=== PATIENT | male | born 1950 | race Caucasian/White ===

== ENCOUNTER 2018-10-24 03:56 | Inpatient (IN) ==
[2018-10-24] MEDS ORDERED: ONDANSETRON 4 MG/2 ML VIAL IV STA (04:23)
[2018-10-24] MEDS ORDERED: SODIUM CHLORIDE 0.9% 500 ML IV STA (04:23)
[2018-10-24] MEDS ORDERED: HYDROmorphone 2 MG/1 ML VIAL IV STA (04:23)
[2018-10-24 04:58] LABS: Basophils % 0.1 % (0.0-0.8); Eosinophils # 0.1 10*3/uL (0.0-0.87); Eosinophils % 1.3 % (0.00-10.9); Hematocrit 34.8 VOL% (42.0-52.0); Hemoglobin 11.2 GM/DL (14.0-18.0); Immature Granulocytes % 0.4 %; Immature Granulocytes Absolute 0.03 #; Lymphocytes # 0.6 10*3/uL (1.4-4.0); Lymphocytes % 7.5 % (21.2-54.2); Mean Corpuscular HGB Conc 32.2 GM/DL (32-36); Mean Corpuscular Volume 92.8 FL (87-102); Mean Platelet Volume 9.9 FL (9.6-12.0); Monocytes % 7.3 % (1.7-12.7); Neutrophils % 83.4 % (38.7-73.9); Platelet Count 196 T/CUMM (130-400); Red Blood Count 3.75 MC/CUMM (3.8-5.5); Red Cell Distribution Width 12.9 % (9.3-17.3); White Blood Count 7.6 T/CUMM (4-12)
[2018-10-24 05:03] LABS: INR 0.9; PT Patient Result 10.3 SECS
[2018-10-24 05:39] LABS: Albumin 3.6 G/DL (3.4-5.0); Bilirubin,Total 0.4 MG/DL (0.2-1.0); Osmolality,Calculated 289.1 MOS/KG (273-304); Total Protein 6.7 G/DL (6.4-8.3)
[2018-10-24] MEDS ORDERED: MAGNESIUM HYDROXIDE SUSP 30 ML UDCUP PO PRN (07:40)
[2018-10-24] MEDS ORDERED: ONDANSETRON 4 MG/2 ML VIAL IV PRN (07:40)
[2018-10-24] MEDS ORDERED: ceFAZolin 2,000 MG in PREMIX 1 EACH IV ONE (07:40)
[2018-10-24] MEDS ORDERED: HYDROmorphone 2 MG/1 ML VIAL IV PRN (07:40)
[2018-10-24 09:19] LABS: Risk Ratio 3.12; Thyroid Stimulating Hormone 1.41 uIU/ml (0.358-3.74); VLDL CHOLESTEROL 15.2 MG/DL
[2018-10-24] MEDS: SODIUM CHLORIDE 0.9% 1,000 ML IV SCH ×3 (10:23→23:42)
[2018-10-24] MEDS ORDERED: DIAZEPAM 5 MG TABLET PO ONE (12:00)
[2018-10-24] MEDS ORDERED: FAMOTIDINE 20 MG TABLET PO ONE (12:00)
[2018-10-24] MEDS ORDERED: EPINEPHrine 1 MG/ML VIAL ONE (13:55)
[2018-10-24] MEDS ORDERED: BUPIVACAINE SPINAL 0.75% 2 ML AMP SPINAL ONE (13:55)
[2018-10-24] MEDS ORDERED: BUPIVACAINE 0.5% 50 ML VIAL ONE (13:55)
[2018-10-24] MEDS ORDERED: DEXAMETHASONE 4 MG/1 ML VIAL ONE (13:55)
[2018-10-24] MEDS ORDERED: PHENYLEPHRINE 1 MG/10 ML SYRINGE IV ONE ×2 (13:56→16:00)
[2018-10-24] MEDS ORDERED: PROPOFOL 500 MG/50 ML BOTTLE IV ONE (13:56)
[2018-10-24] MEDS ORDERED: MORPHINE 4 MG/1 ML VIAL IV PRN (14:49)
[2018-10-24] MEDS ORDERED: diphenhydrAMINE CAP 25 MG CAPSULE PO PRN (14:49)
[2018-10-24] MEDS ORDERED: BACITRACIN OINT 0.9 GM PACK TOP ONE (15:36)
[2018-10-24] MEDS ORDERED: KETAMINE 500 MG/10 ML VIAL ONE (16:00)
[2018-10-24] MEDS ORDERED: MIDAZOLAM 2 MG/2 ML VIAL ONE (16:00)
[2018-10-24] MEDS ORDERED: LACTATED RINGERS 1,000 ML IV ONE (16:01)
[2018-10-24 16:58] LABS: Apearance,Urine CLOUDY (Clear); Bilirubin,Urine Negative (Negative); Blood, Urine Negative (Negative); Glucose,Urine (UA) Negative (Negative); Ketones,Urine Negative (Negative); Mucus,Urine Moderate /LPF (Occasional); Nitrite,Urine Negative (Negative); Protein,Urine Negative; Urine Color Yellow (Yellow); Urine Specific Gravity 1.029 (1.001-1.035); Urine Urobilinogen < 2.0 EU/DL (0.2-1.0)
[2018-10-24] MEDS: KETOROLAC 30 MG/1 ML VIAL IV SCH ×2 (17:29→22:03)
[2018-10-24] MEDS: ceFAZolin 2,000 MG in PREMIX 1 EACH IV SCH (18:12)
[2018-10-24] MEDS: DOCUSATE SODIUM 100 MG CAPSULE PO SCH (22:03)
[2018-10-25] MEDS: MORPHINE 4 MG/1 ML VIAL IV PRN ×2 (00:54→11:09)
[2018-10-25] MEDS: KETOROLAC 30 MG/1 ML VIAL IV SCH ×2 (03:09→09:12)
[2018-10-25] MEDS: ceFAZolin 2,000 MG in PREMIX 1 EACH IV SCH (03:09)
[2018-10-25] MEDS: SODIUM CHLORIDE 0.9% 1,000 ML IV SCH (04:25)
[2018-10-25 05:54] LABS: Calcium 8.5 MG/DL (8.5-10.1); Osmolality,Calculated 287.1 MOS/KG (273-304)
[2018-10-25 05:56] LABS: Calcium 8.4 MG/DL (8.5-10.1); Osmolality,Calculated 287.1 MOS/KG (273-304)
[2018-10-25 06:48] LABS: Hematocrit 25.2 VOL% (42.0-52.0); Immature Granulocytes % 0.5 %; Immature Granulocytes Absolute 0.03 #; Lymphocytes # 0.4 10*3/uL (1.4-4.0); Lymphocytes % 7.3 % (21.2-54.2); Mean Corpuscular HGB Conc 32.9 GM/DL (32-36); Mean Corpuscular Volume 93.7 FL (87-102); Mean Platelet Volume 10.5 FL (9.6-12.0); Monocytes % 8.1 % (1.7-12.7); Neutrophils % 84.1 % (38.7-73.9); Platelet Count 136 T/CUMM (130-400); Red Blood Count 2.69 MC/CUMM (3.8-5.5); Red Cell Distribution Width 12.6 % (9.3-17.3); White Blood Count 5.5 T/CUMM (4-12)
[2018-10-25 06:51] LABS: Hemoglobin 8.3 GM/DL (14.0-18.0)
[2018-10-25] MEDS: TOLTERODINE LA 2 MG CAPSULE PO SCH (09:14)
[2018-10-25] MEDS: hydroCHLOROthiazide 25 MG TABLET PO SCH (09:14)
[2018-10-25] MEDS: LEVOTHYROXINE 50 MCG TABLET PO SCH (09:14)
[2018-10-25] MEDS: LISINOPRIL 20 MG TABLET PO SCH (09:17)
[2018-10-25] MEDS: OMEGA 3 ACID ETHYL ESTERS 1 GM CAPSULE PO SCH (09:17)
[2018-10-25] MEDS: DOCUSATE SODIUM 100 MG CAPSULE PO SCH ×2 (09:17→21:58)
[2018-10-25] MEDS: ROSUVASTATIN 10 MG TABLET PO SCH (09:17)
[2018-10-25] MEDS: FONDAPARINUX 2.5 MG/0.5 ML SYRINGE SUBCUT SCH (09:20)
[2018-10-26 05:16] LABS: Basophils % 0.2 % (0.0-0.8); Eosinophils # 0.1 10*3/uL (0.0-0.87); Eosinophils % 2.5 % (0.00-10.9); Hematocrit 23.5 VOL% (42.0-52.0); Hemoglobin 7.6 GM/DL (14.0-18.0); Immature Granulocytes % 0.5 %; Immature Granulocytes Absolute 0.02 #; Lymphocytes # 0.6 10*3/uL (1.4-4.0); Lymphocytes % 13.9 % (21.2-54.2); Mean Corpuscular HGB Conc 32.3 GM/DL (32-36); Mean Platelet Volume 10.6 FL (9.6-12.0); Monocytes % 10.5 % (1.7-12.7); Neutrophils % 72.4 % (38.7-73.9); Platelet Count 128 T/CUMM (130-400); Red Cell Distribution Width 12.7 % (9.3-17.3); White Blood Count 4.4 T/CUMM (4-12)
[2018-10-26] MEDS ORDERED: FUROSEMIDE 20 MG/2 ML VIAL IV PRN (06:37)
[2018-10-26] MEDS ORDERED: SODIUM CHLORIDE 0.9% 1,000 ML IV PRN (06:37)
[2018-10-26] MEDS: TOLTERODINE LA 2 MG CAPSULE PO SCH (08:23)
[2018-10-26] MEDS: LISINOPRIL 20 MG TABLET PO SCH (08:24)
[2018-10-26] MEDS: ROSUVASTATIN 10 MG TABLET PO SCH (08:24)
[2018-10-26] MEDS: LEVOTHYROXINE 50 MCG TABLET PO SCH (08:24)
[2018-10-26] MEDS: hydroCHLOROthiazide 25 MG TABLET PO SCH (08:24)
[2018-10-26] MEDS: DOCUSATE SODIUM 100 MG CAPSULE PO SCH ×2 (08:24→20:42)
[2018-10-26] MEDS: OMEGA 3 ACID ETHYL ESTERS 1 GM CAPSULE PO SCH (08:24)
[2018-10-26] MEDS: FONDAPARINUX 2.5 MG/0.5 ML SYRINGE SUBCUT SCH (08:25)
[2018-10-27 05:07] LABS: Basophils % 0.4 % (0.0-0.8); Eosinophils # 0.3 10*3/uL (0.0-0.87); Eosinophils % 6.2 % (0.00-10.9); Hematocrit 31.6 VOL% (42.0-52.0); Hemoglobin 10.2 GM/DL (14.0-18.0); Immature Granulocytes % 0.4 %; Immature Granulocytes Absolute 0.02 #; Lymphocytes # 0.7 10*3/uL (1.4-4.0); Lymphocytes % 15.7 % (21.2-54.2); Mean Corpuscular HGB Conc 32.3 GM/DL (32-36); Mean Corpuscular Volume 92.4 FL (87-102); Mean Platelet Volume 10.1 FL (9.6-12.0); Monocytes % 10.6 % (1.7-12.7); Neutrophils % 66.7 % (38.7-73.9); Platelet Count 137 T/CUMM (130-400); Red Blood Count 3.42 MC/CUMM (3.8-5.5); Red Cell Distribution Width 13.6 % (9.3-17.3); White Blood Count 4.5 T/CUMM (4-12)
[2018-10-27] MEDS: LEVOTHYROXINE 50 MCG TABLET PO SCH (07:03)
[2018-10-27] MEDS: FONDAPARINUX 2.5 MG/0.5 ML SYRINGE SUBCUT SCH (10:00)
[2018-10-27] MEDS: OMEGA 3 ACID ETHYL ESTERS 1 GM CAPSULE PO SCH (10:02)
[2018-10-27] MEDS: TOLTERODINE LA 2 MG CAPSULE PO SCH (10:02)
[2018-10-27] MEDS: LISINOPRIL 20 MG TABLET PO SCH (10:03)
[2018-10-27] MEDS: ROSUVASTATIN 10 MG TABLET PO SCH (10:04)
[2018-10-27] MEDS: DOCUSATE SODIUM 100 MG CAPSULE PO SCH (10:04)
[2018-10-27] MEDS: hydroCHLOROthiazide 25 MG TABLET PO SCH (10:04)
[2018-10-27 14:03] VITALS: BP 144/69
== END 2018-10-27 15:15 | disposition home health service (06) | DRG 481 ==
LOC: EDUNIT# → EDBD → N.ED 03:56 → N.EDINP 05:37 → N.3E 07:33
PROVIDERS: ADMIT Orthopaedic Surgery; ATTEND Orthopaedic Surgery